=== PATIENT | female | born 1955 ===

== ENCOUNTER 2016-11-18 12:49 | Emergency (ER) | payer OTHER ==
[2016-11-18 12:49] VITALS: BMI 27.4
[2016-11-18 13:10] VITALS: RESP 16; TEMP 98
--- NOTE | 2016-11-18 13:24 | ED PDOC ---
Arrival/HPI - General Chief Complaint: ENT Problem Time Seen by Provider: 11/18/16 13:10 Historian: Patient - History of Present Illness Narrative History of Present Illness (Text): 11/18/16 13:21 This 60 yo female presents to this ED c/o right ear discomfort and itching x 2 days. Patient admits using ear drops, and Q-tips to keep her ear clean. Denies fever, facial rash, sore throat or cough. Denies ear trauma. Time/Duration: Other (2 days) Context: Home Past Medical History - Provider Review Nursing Documentation Reviewed: Yes - Infectious Disease Hx of Infectious Diseases: None - Tetanus Immunization Tetanus Immunization: Unknown - Reproductive Menopause: Yes - Cardiac Hx Cardiac Disorders: Yes Hx Hypertension: Yes - HEENT Hx HEENT Disorder: (WEARS RX GLASSES) - Musculoskeletal/Rheumatological Hx Musculoskeletal Disorders: Yes (LEFT ARM SX) Hx Falls: No - Psychiatric Hx Psychophysiologic Disorder: No Hx Substance Use: No - Anesthesia Hx Anesthesia: Yes Hx Anesthesia Reactions: No Hx Malignant Hyperthermia: No - Suicidal Assessment Feels Threatened In Home Enviroment: No Family/Social History - Physician Review Nursing Documentation Reviewed: Yes Family/Social History: No Known Family HX Smoking Status: Never Smoked Hx Alcohol Use: No Hx Substance Use: No Allergies/Home Meds Allergies/Adverse Reactions: Allergies No Known Allergies Allergy (Verified 04/14/14 16:30) Home Medications: Home Meds Medication Instructions Recorded Confirmed Losartan [Cozaar] 25 mg PO DAILY 11/18/16 11/18/16 Review of Systems - Review of Systems Constitutional: Normal. absent: Fatigue, Weight Change, Fevers Eyes: Normal ENT: Other (See HPI) Respiratory: Normal Cardiovascular: Normal Gastrointestinal: Normal Genitourinary Female: Normal Musculoskeletal: Normal Skin: Normal Neurological: Normal Endocrine: Normal Hemo/Lymphatic: Normal Psychiatric: Normal Physical Exam Vital Signs Temp Pulse Resp BP Pulse Ox 11/18/16 13:06 98 F 72 16 190/90 H 98 Temperature: Afebrile Blood Pressure: Normal Pulse: Regular Respiratory Rate: Normal Appearance: Positive for: Well-Appearing, Non-Toxic, Comfortable Pain Distress: None Mental Status: Positive for: Alert and Oriented X 3 - Systems Exam Head: Present: Atraumatic, Normocephalic Pupils: Present: PERRL Extroacular Muscles: Present: EOMI Conjunctiva: Present: Normal Ears: Present: Normal, NORMAL TM, Normal Canal, Other ([place] ear are normal). No: Erythema, TM Bulging, Fluid, TM Perf Mouth: Present: Moist Mucous Membranes Neck: Present: Normal Range of Motion Respiratory/Chest: Present: Clear to Auscultation. No: Good Air Exchange, Respiratory Distress, Accessory Muscle Use, Rales, Rhonchi Cardiovascular: Present: Regular Rate and Rhythm, Normal S1, S2. No: Murmurs Neurological: Present: CN II-XII Intact Skin: Present: Warm, Dry, Normal Color. No: Rashes Psychiatric: Present: Alert, Oriented x 3 Medical Decision Making ED Course and Treatment: 11/18/16 13:24 Re-evaluation. Patient feels better. Discussed results and plan with patient who expresses understanding. All questions answered and there is agreement with the plan to discharge home with instructions. Patient stable for discharge. Return if symptoms persist or worsen Re-evaluation Time: 13:24 Reassessment Condition: Re-examined, Improved Disposition/Present on Arrival - Present on Arrival Any Indicators Present on Arrival: No History of DVT/PE: No History of Uncontrolled Diabetes: No Urinary Catheter: No History of Decub. Ulcer: No History Surgical Site Infection Following: None - Disposition Have Diagnosis and Disposition been Completed?: Yes Diagnosis: Itching of ear Disposition: HOME/ ROUTINE Disposition Time: 13:24 Patient Plan: Discharge Condition: GOOD Discharge Instructions (ExitCare): Otitis Externa (ED) Additional Instructions: Llame a urrutia doctor para seguimiento medico en 1-2 viera. Ponga gotas en el oido theresa esta instruido. Regrese a la emergencia si problema empeora Prescriptions: ACETIC ACID 2% Otic Soln 4 drop AD TID #1 bot Referrals: [facility] [Outside] - Follow up with primary
[2016-11-18 13:38] VITALS: BP 172/90; PULSE 80; O2SAT 99
== END 2016-11-18 14:11 | disposition home or self-care (01) ==
LOC: ED 12:49
DX: L29.9 Pruritus, unspecified (principal)

== ENCOUNTER 2018-09-01 14:03 | Outpatient (CLI) | payer OTHER | END 2018-09-01 14:04 | disposition home or self-care (01) | LOC: RAD 14:03 ==

== ENCOUNTER 2018-10-05 07:42 | Outpatient (CLI) | payer OTHER | END 2018-10-05 07:43 | disposition home or self-care (01) | LOC: RAD 07:42 ==